=== PATIENT | male | born 1960 | race Caucasian/White ===

== ENCOUNTER 2023-09-01 13:27 | Outpatient (CLI) | payer BC, SELFPAY ==
--- NOTE | 2023-09-01 13:45 | MR_ITS ---
[address] [address] Phone:?[phone] Fax:?[phone] Referring Physician Information: Dean Hardy M.D. [address] [place] [address] Phone:?[phone] Fax:?[phone] Patient:Morro Encinas D.O.B:?1960 Sex:?Male Phone:?[phone] [facility] MRN:?[id number] Exam Date:?09/01/2023 EXAM: MRI of the RIGHT SHOULDER, without contrast CLINICAL: Right shoulder pain. COMPARISONS: None available. TECHNICAL: Multiplanar multisequence MRI of the right shoulder was obtained. SEDATION: None. CONTRAST: None. FINDINGS: Rotator cuff: Supraspinatus/Infraspinatus: There is mild tendinosis with mild partial interstitial insertional tearing of the distal supraspinatus tendon. Infraspinatus tendon appears unremarkable. No significant fatty atrophy of the muscle bellies. Teres minor: No tendinosis, tear or atrophy. Subscapularis: No tendinosis, tear or atrophy. Bursae: Subacromial-subdeltoid: No significant bursal fluid. Subcoracoid: No significant bursal fluid. Coracoacromial arch: Acromion morphology: Type II. No os acromiale. Acromiohumeral space: Within normal limits. Coracohumeral space: Within normal limits. Biceps tendon, long head: Mild partial interstitial tearing of the intra- articular tendon as seen on sagittal series 8 image 13-16. Mild partial interstitial tearing also involves the imaged proximal extra-articular tendon with mild fluid about the imaged proximal extra-articular tendon. No significant tendon displacement. Glenohumeral joint: Physiologic volume of joint fluid. Articular cartilage: There is high-grade/full-thickness chondral loss involving the posterior extending into the central glenoid, also seen to involve the superior and superomedial humeral head. Capsule: No convincing evidence of capsular thickening or injury. Labrum: There is tearing of the superior labrum posterior to the biceps anchor as seen on coronal series 4 images 15-16. There is tearing of the inferior labrum with very small adjacent paralabral cyst formation. Bones: No suspicious marrow signal alteration, fracture or dislocation. There is mild degenerative peripheral marginal spurring involving the glenohumeral joint with mild subchondral reactive marrow edema involving the glenoid. Acromioclavicular joint: Mild changes of arthrosis. No AC joint injury/widening. IMPRESSION: 1. Mild tendinosis with mild partial interstitial tearing of the distal supraspinatus tendon. 2. Mild partial interstitial tearing of the long head biceps tendon. 3. Tearing of the superior as well as the inferior labrum. 4. High-grade/full-thickness chondral loss involving the glenohumeral joint as above. Mild osseous changes of glenohumeral arthrosis. 5. Mild AC joint arthrosis. JCZ Electronically signed on 09/02/2023 7:35:00 AM by Lopez Escobar D.O.
== END 2023-09-01 13:28 | disposition home or self-care (01) ==
LOC: MRI 13:28
PROVIDERS: PCP Family Medicine; Visit Provider Orthopaedic Surgery
DX: M25.511 Pain in right shoulder (principal); M75.101 Unspecified rotator cuff tear or rupture of right shoulder, not specified as traumatic; S43.431A Superior glenoid labrum lesion of right shoulder, initial encounter; M19.011 Primary osteoarthritis, right shoulder
CPT/HCPCS: 73221

== ENCOUNTER 2023-09-07 09:55 | Outpatient (RCR) | payer BC, SELFPAY | END 2024-01-05 23:59 | disposition home or self-care (01) | PROVIDERS: PCP Family Medicine; Visit Provider Orthopaedic Surgery | DX: M19.011 Primary osteoarthritis, right shoulder (principal); M25.511 Pain in right shoulder; R29.898 Other symptoms and signs involving the musculoskeletal system; Z51.89 Encounter for other specified aftercare | CPT/HCPCS: 97110; 97140; 97162 ==

== ENCOUNTER 2024-05-18 07:50 | Outpatient (CLI) | payer BC, SELFPAY ==
--- NOTE | 2024-05-18 08:15 | MR_ITS ---
[address] [address] Phone:?[phone] Fax:?[phone] Referring Physician Information: Dean Hardy M.D. [address] [place] [address] Phone:?[phone] Fax:?[phone] Patient:Morro Encinas D.O.B:?1960 Sex:?Male Phone:?[phone] [facility] MRN:?[id number] Exam Date:?05/18/2024 EXAM: MRI of the LEFT ANKLE CLINICAL HISTORY: Ongoing left ankle pain. Peroneal tendon tear. COMPARISONS: Plain radiographs 08/27/2023. TECHNICAL: MRI sequences of the left ankle: Axials: PD, T2 Coronals: PD, T2 Sagittals: PD, T2, STIR Sedation: None Contrast: None FINDINGS: Joints and osseous structures: There is focal edema-like signal within the calcaneus within and adjacent to the calcaneal peroneal tubercle. No fracture, subluxation, dislocation, tarsal coalition, or talar dome osteochondral lesion is seen. Ligaments: Syndesmotic: The anterior inferior tibiofibular, posterior inferior tibiofibular, and inferior transverse ligaments are intact. Anterior talofibular: Irregularity and thickening. Calcaneofibular: Intact. Posterior talofibular: Intact. Deltoid: Irregularity and ill-definition of both the deep and superficial layers of the deltoid ligament. Spring: Unremarkable. Sinus tarsi: Intact lateral cervical and medial interosseous ligaments. Bifurcate: Unremarkable lateral calcaneonavicular and medial calcaneocuboid ligaments. Calcaneocuboid: Unremarkable medial, dorsolateral and plantar ligaments. Lisfranc ligament complex: Not completely covered in the [id number] of this study. Flexor tendons: Posterior tibial: A small amount of fluid surrounding the posterior tibialis tendon may be within normal physiologic limits versus slight tenosynovitis. Flexor digitorum longus: Intact. Flexor hallucis longus: Intact. Peroneal tendons: There is mild peroneal tenosynovitis. There is high-grade/near complete tearing of the peroneus brevis tendon from just above the distal fibular tip extending just distal to the level of the calcaneal peroneal tubercle. There is fraying and mild tendinopathy of the peroneus longus tendon between the levels of the distal fibular tip and calcaneocuboid joint. No lateral subluxation. Extensor tendons: Tibialis anterior: Intact. Extensor hallucis longus: Intact. Extensor digitorum longus: Intact. Achilles tendon: Intact. Plantar aponeurosis: Unremarkable. Sinus Tarsi:?The sinus tarsi fat is intact. Tarsal tunnel: Unremarkable. IMPRESSION: 1. Irregularity and thickening of the anterior talofibular ligament are findings consistent with sequelae of chronic sprain injury. 2. Mild peroneal tenosynovitis. High-grade/near complete tearing of the peroneus brevis tendon from just above the distal fibular tip extending just distal to the level of the calcaneal peroneal tubercle. Fraying and mild tendinopathy of the peroneus longus tendon between the levels of the distal fibular tip and calcaneocuboid joint. Focal edema-like signal within the calcaneus within and adjacent to the calcaneal peroneal tubercle likely reflects reactive bone marrow edema secondary to peroneal tendon pathology. 3. Irregularity and ill-definition of both the deep and superficial layers of the deltoid ligament are findings consistent with sequelae of chronic sprain injuries. 4. A small amount of fluid surrounding the posterior tibialis tendon may be within normal physiologic limits versus slight tenosynovitis. 5. No acute ligamentous injury or talar dome osteochondral lesion of the left ankle. RCB Electronically signed on 05/18/2024 10:54:00 AM by Earnest Hardwick M.D.
== END 2024-05-18 07:51 | disposition home or self-care (01) ==
LOC: MRI 07:50
PROVIDERS: PCP Family Medicine; Visit Provider Orthopaedic Surgery
DX: M25.572 Pain in left ankle and joints of left foot (principal); S93.492S Sprain of other ligament of left ankle, sequela; M65.872 Other synovitis and tenosynovitis, left ankle and foot; S96.812A Strain of other specified muscles and tendons at ankle and foot level, left foot, initial encounter; S86.319A Strain of muscle(s) and tendon(s) of peroneal muscle group at lower leg level, unspecified leg, initial encounter
CPT/HCPCS: 73721

== ENCOUNTER 2024-06-15 06:23 | Day surgery (SDC) | payer BC, SELFPAY ==
[2024-06-15] VITALS (13 sets, daily range): BP systolic 141–165; BP diastolic 82–97; PULSE 48–66; RESP 13–20; TEMP 36.1–36.7; O2SAT 94–98; BMI 28.0
[2024-06-15] MEDS: SODIUM CHLORIDE 0.9 % (FLUSH) 10 ML SYRINGE IVF (06:54)
[2024-06-15] MEDS: CEFAZOLIN 2 GM INJ IVP (07:43)
[2024-06-15] MEDS: LACTATED RINGERS 500 ML 500 ML 125 ML IV (08:00)
[2024-06-15] MEDS: 0.9 % SODIUM CHLORIDE 500 ML 500 ML 30 ML IV (08:00)
[2024-06-15] MEDS: LACTATED RINGERS 1000 ML 1,000 ML 100 ML IV (08:45)
--- NOTE | 2024-06-15 08:49 | W.ANESCHARGE ---
Anesthesia Charges Start Date/Time Anesthesia Start Date: 06/15/24 Anesthesia Start Time: 07:31 Stop Date/Time Anesthesia Stop Date: 06/15/24 Anesthesia Stop Time: 09:44
--- NOTE | 2024-06-15 09:27 | PM.ORPRC ---
Procedure Note Date of procedure: 06/15/24 Procedure: PREOPERATIVE DIAGNOSIS: Left lower extremity peroneus brevis tear POSTOPERATIVE DIAGNOSIS: Left lower extremity peroneus brevis tear NAME OF OPERATION: Peroneus brevis debridement with primary repair SURGEON: Dean Hardy MD PERSONAL INSURANCE ADVISOR: MARLENE Ross ANESTHESIA: Spinal ESTIMATED BLOOD LOSS: 0 mL COMPLICATIONS: None SPECIMENS: None DRAINS: None PREOPERATIVE ANTIBIOTICS: Ancef 2 gram INDICATIONS: The patient is a 64-year-old male with lateral ankle pain. MRI scan is consistent with a near full-thickness tear of the peroneus brevis. Operative intervention was recommended. The risks, benefits and expected outcomes were discussed in detail. These included but were not limited to: Infection, bleeding, injury to blood vessel or nerve, venous thromboembolism. All questions were answered to their satisfaction. Use of an visitor service assistant was necessary throughout the case for patient positioning and safety, soft tissue retraction and closure. PROCEDURE: Spinal anesthesia was administered. The patient was placed supine on the operating room table. The left lower extremity was prepped and draped in the usual sterile fashion. The limb was exsanguinated with the Perez bandage. The pneumatic tourniquet was inflated to 300 mmHg. A longitudinal incision was made laterally, over the peroneal tendons, just posterior to the lateral malleolus. Subcutaneous dissection was taken with tenotomy scissors to the peroneal tendon sheath. The visitor service assistant was used to retract the soft tissues and protect them. The sheath was opened longitudinally. The peroneal tendons were encountered. The longus was thickened, but not degenerative. The brevis was markedly degenerative for a 60 mm length of tendon from proximal to the posterior aspect of the lateral malleolus to distal to the tip of the lateral malleolus. It was debrided longitudinally. It was freed up from its fibro-osseous tunnel. Given how much of the tendon was involved it was not transversely debrided/excised for fear that an end-to-end repair would not be possible without marked eversion of the foot. We then ran a 2-0 FiberWire suture x2. One from distal to proximal, 1 from proximal to distal. This provides a reasonable repair of the tendon. The wounds were irrigated with normal saline. The peroneal tendon sheath was repaired with a 2-0 Vicryl in an interrupted [id number] fashion. The tendons are stable with passive range of motion of the ankle and subtalar joints. The visitor service assistant closed the soft tissue with a 2-0 Vicryl deep and a 3-0 Monocryl in a subcuticular fashion. Glue was used to seal the skin. The visitor service assistant placed a dry dressing and short leg Kunal Corrales splint with the ankle in a neutral position. The tourniquet was released. Sponge and needle counts were correct x 2. The patient tolerated the procedure well. There were no apparent complications. They were carefully transferred to the hospital bed and taken to the postanesthesia care unit in satisfactory condition. PLAN: The patient will be discharged to home. They may toe-touch weightbear on the lower extremity. They will continue to work on ice and elevation. They will follow up in the office in 1-2 weeks for a wound check. If there are no wound issues we will place them in a CAM walker and allow them to weightbear as tolerates. Additionally, we will likely begin some early physical therapy.
--- NOTE | 2024-06-15 09:49 | W.ANESCHARGE ---
Anesthesia Charges Start Date/Time Anesthesia Start Date: 06/15/24 Anesthesia Start Time: 07:31 Stop Date/Time Anesthesia Stop Date: 06/15/24 Anesthesia Stop Time: 09:44
[2024-06-15] MEDS: fentaNYL 100 MCG/2 ML inj 50 MCG IVP (09:53)
--- NOTE | 2024-06-15 10:45 | W.PM.NB ---
Nerve Block Nerve Block Time Seen by Provider: 09:45 Date Seen: 06/15/24 Type of block requested by surgeon for post-operative analgesia: popliteal Side: left Time out performed: Yes Verification of patient name: Yes Verification of date of : Yes Site marking: site marked Name of person performing procedure: Warren Continuous monitoring Was continuous monitoring of O2 sat, B/P, campus monitor, recorded every 15 minutes?: Yes Procedure Checklist: sterile prep, needles and gloves Ultrasound guided. Images saved: Yes Medications given in 5ml increments after negative aspiration: Marcaine %: 0.5 mL: 20 Needle gauge: 22 Patient tolerated procedure well: Yes Additional comments: Needle noted adjacent to nerve Block Charges Block Charge (with Pro Fee): Sciatic Nerve Use of Ultrasound Machine for Block: Yes- US Guidance/pain block
== END 2024-06-15 11:35 | disposition home or self-care (01) ==
LOC: OR 06:24
PROVIDERS: PCP Family Medicine; Visit Provider Orthopaedic Surgery
PROC: (CPT 27650; principal; 2024-06-15 07:45)
DX: S86.312A Strain of muscle(s) and tendon(s) of peroneal muscle group at lower leg level, left leg, initial encounter (principal); G89.18 Other acute postprocedural pain
CPT/HCPCS: 28200; 01470; 64445; 76942; J0665; J0690; J1100; J2250; J2405; J2704; J3010; J7030; J7120

== ENCOUNTER 2024-08-28 09:00 | Outpatient (RCR) | payer BC, SELFPAY | END 2024-12-26 23:59 | disposition home or self-care (01) | PROVIDERS: PCP Family Medicine; Visit Provider Orthopaedic Surgery | DX: Z48.89 Encounter for other specified surgical aftercare (principal); Z51.89 Encounter for other specified aftercare | CPT/HCPCS: 97110; 97112; 97140; 97161 ==

== ENCOUNTER 2025-02-09 19:32 | Emergency (ER) | payer BC, SELFPAY ==
--- OUTSIDE RECORDS SUMMARY | 2025-02-09 19:34 | XMS_ITS | Clinical Summary ---
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
--- OUTSIDE RECORDS SUMMARY | 2025-02-09 19:34 | XMS_ITS | Clinical Summary ---
Author Organization [facility] Address [address] [place] [id number] Care Team Providers Care Orthopaedic Technologist Name Role Phone Levi Curry Jorge Unavailable [phone] Amado West MD Primary Care Provider Allergies Active Allergy Reactions Criticality Noted Date Comments Phenylephrine Hypertension 08/30/2024 Pseudoephedrine Hypertension 08/30/2024 Medications omeprazole 20 mg Delayed-Release capsuleIndicati ons:Gastritis, presence of bleeding unspecified, unspecified chronicity, unspecified gastritis type Take 1 Capsule (20 mg) by mouth once daily before a meal. Take 30 minutes prior to a meal 90 Capsule 01/27/20 25 Active lisinopril-hydr ochlorothiazide 20-12.5 mg tablet (PRINZIDE)Indic ations:HTN (hypertension) TAKE TWO TABLETS BY MOUTH EVERY DAY 180 Tablet 1 01/30/20 25 Active lisinopril-hydr ochlorothiazide , 20-25 mg, (PRINZIDE, ZESTORETIC) 20-25 mg per tablet Take 1 Tablet by mouth once daily. 07/13/20 22 025 Discontinued(*M ed complete/Regime n complete/Level of care change) lisinopril-hydr ochlorothiazide 20-12.5 mg tablet (PRINZIDE)Indic ations:HTN (hypertension) TAKE TWO TABLETS BY MOUTH EVERY DAY 180 Tablet 11/07/19 25 025 Discontinued Active Problems Problem Noted Date Diagnosed Date Hemorrhoids, external 04/15/2020 Essential hypertension 09/26/2014 Encounters Date Type Department Care Team Description 01/27/2025 Refill [facility] in [place] [address] [place] [phone] Amado West MD Refill Request (Lisinopril-hydrochlo rothiazide (20-12.5 Mg)) 01/26/2025 9:00 AM CDT Office Visit [facility] in [place] [address] [place] [phone] Amado West MD Physical 01/26/2025 Travel from Last 3 Months Immunizations Immunization Administration Dates Next Due COVID-19 VACCINE SPIKEVAX (M ODERNA 50MCG/0.5ML) 12YO+ PFS 08/27/2023 COVID-19 vaccine (Moderna 50 mcg/0.5mL) 12YO+ BIVALENT PF, MDV 07/27/2022 DTaP 09/20/2007 Hepatitis A (Adult) 10/31/2003 Influenza Virus, Unspecified 08/05/2015,09/01/19 13 Influenza, IIV3 (Age >=3 years) 08/05/2015,09/01 Influenza, IIV4 08/27/2023, 2,07/01/2021,08/07 Pneumococcal Conj 20-valent (Prevnar 20) 01/26/2025 RSV, Recombinant ADJ Reconst ituted (Arexvy 120MCG/0.5mL) 08/27/2023 Td (Age >=7 Years) 10/31/2003 Tdap 02/11/2017,09/20/2007 Zoster (Shingrix-RZV, recombinant) 11/26/2021, Family History Medical History Relation Name Comments Cancer-prostate Father Heart Disease Father stents Other Father hyperlipidemia Cancer-colon No Family History Diabetes No Family History Heart attack No Family History no prematu re cad Relation Name Status Comments Brother 1 Alive Brother 2 Alive Daughter Alive Father Alive Prostate cancer Mother Alive Sister 1 Alive Sister 2 Alive Son 1 Alive Son 2 Alive Social History Tobacco Use Types Packs/Day Years Used Date Smoking Tobacco: Never Passive Smoke Exposure: Never Smokeless Tobacco: Former Chew Quit: 06/17/2007 Tobacco Cessation:Counseling Given: Not Answered Alcohol Use Standard Drinks/Week Comments Yes 10 (1 standard drink = 0.6 oz pu re alcohol) 1 - 2 / day PHQ-2 Answer Date Recorded PHQ-2 TOTAL SCORE 0 01/26/2025 Social Connections Answer Date Recorded Do you often feel lonely or isolated from those around you? 0 08/30/2024 Financial Resource Strain Answer Date R ecorded Difficulty of Paying Living Expenses 3 08/30/2024 Difficulty of Paying Living Expenses Not on file 08/30/2024 Food Insecurity Answer Date Recorded Do you worry your food will run out before you are able to buy more? 1 08/30/2024 Transportation Needs Answer Date Record ed Does lack of transportation keep you from medica l appointments? 1 08/30/2024 Does lack of transportation keep you from work, meetings or getting things that you need? 1 08/30/2024 Housing Stability Answer Date Recorded What is your housing situation today? 1 08/30/2024 Interpersonal Safety Answer Date Record ed Are you being hit, kicked, p ushed or yelled at (see row info)? No 09/06/2023 Interpersonal Safety Abuse 12 - 18 Not on file 09/06/2023 Interpersonal Safety Ambulatory Vulnerability No t on file 09/06/2023 Utilities Answer Date Recorded Do you have trouble paying f or utilities (for example, heat, electricity, water, phone)? 1 08/30/2024 Sex and Gender Information Value Date Recorded Sex Assigned at Not on file Legal Sex Male 6:44 AM TALENT SPECIALIST Gender Identity Not on file Sexual Orientation Not on file Occupation Industry Job Start Date Job End Date [employer] Not on file Not on file Not on file Obstetrics History Last Filed Vital Signs Vital Sign Reading Time Taken Comments Blood Pressure 142/76 01/26/2025 8:12 AM CDT Pulse 80 01/26/2025 8:12 AM CDT Temperature 36.4 C (97.6 F) 08/30/2024 9:20 AM TALENT SPECIALIST Respiratory Rate 18 08/30/2024 9:20 AM TALENT SPECIALIST Oxygen Saturation 98% 08/30/2024 9:20 AM TALENT SPECIALIST Inhaled Oxygen Concentration - - Weight 98.1 kg (216 lb 4.8 oz) 01/26/2025 8:12 A M CDT Height 189.2 cm (6' 2.5) 01/26/2025 8:12 AM CDT Body Mass Index 27.4 01/26/2025 8:12 AM CDT Plan of Treatment Health Maintenance Due Date Last Done Comments HIV for age 15-65 1975 COVID-19 vaccine series (2023- season) 2024 08/27/2023, 07/27/2022, 07/01/2021, Additional history exists Influenza Vaccine (Season Ended) 2025 08/27/2023, 07/03/2022, 07/01/2021, Additional history exists BMI (ht and wt on same day) for age 18+ 01/26/2026 01/26/2025, 06/05/2024, 09/10/2023, Additional history exists Depression screening for age 12+ 01/26/2026 01/26/2025, 08/27/2023, 07/27/2022, Additional history exists Tetanus booster 02/11/2027 02/11/2017, 08/24, 10/31/2003 Lipids for age 45-75 01/26/2030 01/26/2025, 08/27/2023, 07/24/2022, Additional history exists Colonoscopy through age 75 07/16/203107/16, 06/04/2011, 06/04/2011 Tdap Completed 02/11/2017, 09/20/2007 Hepatitis C screening for age 18-79 Completed 08/07/2020 Zoster (shingles) series for age 50+ Completed 11/26/2021, 08/07/2020 RSV vaccine for adults or Completed 08/27/2023 Pneumococcal series for age 50+ Completed 01/26/2025 Hepatitis B series for 19+ Aged Out N o longer eligible based on patient's age to complete this topic Procedures Procedure Name Priority Date/Time Associated Diagnosis Comments CBC W PLT NO DIFF Routine 01/26/2025 9:2 2 AM CDT Gastritis, presence of bleeding unspecified, unspecified chronicity, unspecified gastritis type COMP METABOLIC PANEL Routine 01/26/2025 9:22 AM CDT Gastritis, presence of bleeding unspecified, unspecified chronicity, unspecified gastritis type LIPASE Routine 01/26/2025 9:22 AM CDT Gastritis, presence of bleeding unspecified, unspecified chronicity, unspecified gastritis type LIPID PANEL W REFLEX MEASURED LDL Routine 01/26/2025 9:22 AM CDT Encounter for screening for lipoid disorders PSA TOTAL Routine 01/26/2025 9:22 AM CDT Routine medical exam COLONOSCOPY 07/16/2021 1:47 PM TALENT SPECIALIST ANTI HCV Routine 08/07/2020 4:10 PM TALENT SPECIALIST Need for hepatitis C screening test from Last 3 Months or Most Recently Relevant to Health Maintenance Results * (ABNORMAL) LIPID PANEL W REFLEX MEASURED LDL ([id number]) (01/26/2025 9:22 AM CDT) CHOLESTEROL,TOTAL 219(H) 100 - 199 mg/dL 01/26/2025 5:28 PM CDT [facility] Comment: Cholesterol, Total Reference Ranges Desirable <200 mg/dL Borderline 200-239 mg/dL High >=240 mg/dL TRIGLYCERIDES 60 <150 mg/dL 01/26/2025 5:28 PM CDT [facility] HDL CHOLESTEROL 100 >40 mg/dL 5:28 PM CDT [facility] NON-HDL CHOLESTEROL 119 <145 mg/dl 01/26/2025 5:28 PM CDT [facility] CHOL/HDL RATIO 2.19 <4.50 01/26/2025 5:28 PM CDT [facility] LDL CHOLESTEROL 107 <=130 mg/dL 01/26/2025 5:28 PM CDT [facility] VLDL CHOLESTEROL 12 <=30 mg/dL 01/26/2025 5:28 PM CDT [facility] PROVIDER ORDERED STATUS FASTING 01/26/2025 5:28 PM CDT [facility] Blood BLOOD SPECIMEN / Unknown Venipuncture / Unknown 01/26/2025 9:22 AM CDT 01/26/2025 9:22 AM CDT us Amado Severino West MD CHEMISTRY Final Result [facility] [address] [place] [address], * CBC W PLT NO DIFF (01/26/2025 9:22 AM CDT) WHITE BLOOD COUNT 5.8 4.5 - 11.0 thou/cu mm 01/26/2025 5:23 PM CDT [facility] RED BLOOD COUNT 5.19 4.30 - 5.90 mil/cu mm 01/26/2025 5:23 PM CDT [facility] HEMOGLOBIN 15.6 13.5 - 17.5 g/dL 01/26/2025 5:23 PM CDT [facility] HEMATOCRIT 46.9 37.0 - 53.0 % 01/26/2025 5:23 PM CDT [facility] MCV 90 80 - 100 fL 01/26/2025 5:23 PM CDT [facility] MCH 30.1 26.0 - 34.0 pg 01/26/2025 5:23 PM CDT [facility] MCHC 33.3 32.0 - 36.0 g/dL 01/26/2025 5:23 PM CDT [facility] RDW 13.1 11.5 - 15.5 % 01/26/2025 5:23 PM CDT [facility] PLATELET COUNT 211 140 - 440 thou/cu mm 01/26/2025 5:23 PM CDT [facility] MPV 10.6 6.5 - 11.0 fL 01/26/2025 5:23 PM CDT [facility] NRBC 0.0 % 01/26/2025 5:23 PM CDT [facility] ABS NRBC 0.0 thou /cu mm 01/26/2025 5:23 PM CDT [facility] Blood BLOOD SPECIMEN / Unknown Venipuncture / Unknown 01/26/2025 9:22 AM CDT 01/26/2025 9:22 AM CDT Amado West MD HEMATOLOGY Final Result Performing Organization Address City/[facility]/ZIP Co de Phone Number [facility] [address] [address], [place] * PSA TOTAL (DIAGNOSTIC) [[id number]] (01/26/2025 9:22 AM CDT) PSA TOTAL 1.45 <4.00 ng/mL 01/26/2025 5:49 PM CDT [facility] Blood BLOOD SPECIMEN / Unknown Venipuncture / Unknown 01/26/2025 9:22 AM CDT 01/26/2025 9:22 AM CDT Narrative [facility] - 01/26/2025 5:49 PM CDT The test method changed on 02/16/2023. If this test has been used for serial monitoring, rebaselining is recommended. Rebaselining consists of 2 measurements, collected 3-6 weeks apart. The [employer] Elecsys total PSA assay is an electrochemiluminescence immunoassay ECLIA performed on the [employer] Doretha e immunoassay analyzers. Values obtained with different assay methods may be different and cannot be used interchangeably. us Amado West MD CHEMISTRY Final Result Performing Organization Address [facility] Co de Phone Number [facility] [address] [address], [place] * LIPASE (01/26/2025 9:22 AM CDT) LIPASE 18.0 13.0 - 60.0 IU/L 01/26/2025 5:28 PM CDT [facility] Blood BLOOD SPECIMEN / Unknown Venipuncture / Unknown 01/26/2025 9:22 AM CDT 01/26/2025 9:22 AM CDT Amado West MD CHEMISTRY Final Result Performing Organization Address City/[facility] Co de Phone Number [facility] [address] [place] [address], * (ABNORMAL) COMP METABOLIC PANEL (01/26/2025 9:22 AM CDT) SODIUM 137 136 - 145 mmol/L 01/26/2025 5:28 PM CDT [facility] POTASSIUM 4.2 3.5 - 5.1 mmol/L 01/26/2025 5:28 PM CDT [facility] CHLORIDE 101 98 - 107 mmol/L 01/26/2025 5:28 PM CDT [facility] CO2,TOTAL 25 22 - 29 mmol/L 01/26/2025 5:28 PM CDT [facility] ANION GAP 11 5 - 18 01/26/2025 5:28 PM CDT [facility] GLUCOSE 107(H) 70 - 99 mg/dL 01/26/2025 5:28 PM CDT [facility] CALCIUM 9.5 8.8 - 10.4 mg/dL 01/26/2025 5:28 PM CDT [facility] Comment: Reference ranges for this test were updated on 06/27/2024 to reflect our healthy population more accurately. Reference range changes are not retroactively applied to results, but previous results using the same methodology can be interpreted in the context of the new reference range. BUN 17 8 - 23 mg/dL 01/26/2025 5:28 PM CDT [facility] CREATININE 0.93 0.70 - 1.20 mg/dL 01/26/2025 5:28 PM T [facility] BUN/CREAT RATIO 18 10 - 20 5:28 PM T [facility] eGFR >90 >90 mL/min/1. 73m2 01/26/2025 5:28 PM T [facility] Comment:As of 2021, eG FR is calculated by the CKD-EPI creatinine equation without race adjustment. eGFR can be influenced by muscle mass, exercise, and diet. The reported eGFR is an estimation only and is only applicable if the renal function is stable. ALBUMIN 4.5 4.0 - 4.9 g/dL 01/26/2025 5:28 PM CDT [facility] PROTEIN,TOTAL 7.3 6.0 - 8.0 g/dL 01/26/2025 5:28 PM CDT [facility] BILIRUBIN,TOTAL 0.4 0.0 - 1.2 mg/dL 01/26/2025 5:28 PM CDT [facility] ALK PHOSPHATASE 71 40 - 129 IU/L 01/26/2025 5:28 PM CDT [facility] ALT (SGPT) 31 10 - 50 IU/L 01/26/2025 5:28 PM CDT [facility] AST (SGOT) 29 10 - 50 IU/L 01/26/2025 5:28 PM CDT [facility] Blood BLOOD SPECIMEN / Unknown Venipuncture / Unknown 01/26/2025 9:22 AM CDT 01/26/2025 9:22 AM CDT [facility] Severino West MD CHEMISTRY Final Result [facility] [address] [place] [address], [place] * COLONOSCOPY (07/16/2021 1:47 PM TALENT SPECIALIST) 07/16/2021 1:47 PM TALENT SPECIALIST Narrative Transcriptions Gavin Monge MD - 07/16/2021 2:29 PM CST Patient Name: Adriano Encinas Procedure Date: 07/16/2021 Gender: Male Date of : 1960 Admit Type: Ambulatory Procedure: Colonoscopy Proceduralist: Gavin Monge MD Indications/Pre-Op Diagnosis: Screening for colorectal malignantneoplasm Medications: Propofol per Anesthesia Procedure Description: The procedure, indications, potential complications, (bleeding, perforation, infection, adverse medication reaction, missed lesionsor polyps) and alternatives available were explained to the patient, who appeared to understand and indicated this. Opportunity for questionswas provided and informed consent obtained. The colonoscope was passed through the anus and advanced to thececum, identified by appendiceal orifice and ileocecal valve. Thecolonoscopy was performed without difficulty. The patient tolerated the procedure well. The quality of the bowel preparation was good. The ileocecal valve, appendiceal orifice, and rectum were photographed. Complications: No immediate complications. Estimated blood loss: Minimal. Estimated Blood Loss & Specimen: Estimated blood loss was minimal. Specimen collected: Yes and sent to Laboratory Findings: The perianal and digital rectal examinations were normal. A 4 mm polyp was found in the ascending colon. The polyp was semi-pedunculated. The polyp was removed with a cold snare. Resection and retrieval were complete. Verification of patient identificationfor the specimen was done by the physician, nurse and truck technician usingthe patient's name, date and medical record number. Estimated blood loss was minimal. A 3 mm polyp was found in the sigmoid colon. The polyp was semi-pedunculated. The polyp was removed with a cold snare. Resection and retrieval were complete. Verification of patient identificationfor the specimen was done by the physician, nurse and truck technician usingthe patient's name, date and medical record number. Estimated blood loss was minimal. The exam was otherwise without abnormality on direct and retroflexion views. Impressions/Post-Op Diagnosis: - One 4 mm polyp in the ascending colon, removed with a cold snare. Resected and retrieved. - One 3 mm polyp in the sigmoid colon, removed with a cold snare. Resected and retrieved. - The examination was otherwise normal on direct and retroflexionviews. Recommendation: - Discharge patient to home. - Resume previous diet. - Continue present medications. - Await pathology results. - Repeat colonoscopy in 5 years for surveillance. - Return to referring physician PRN. Moderate Sedation: Moderate (conscious) sedation was personally administered by an anesthesia professional. The following parameters were monitored:oxygen saturation, heart rate, blood pressure, and response to care. Total physician intraservice time was 40 minutes. Gavin Monge MD 07/16/2021 2:29:52 PM Note Initiated On: 07/16/2021 1:47 PM us Gavin Monge MD PROCEDURE ORD Final Result * ANTI HCV (08/07/2020 4:10 PM TALENT SPECIALIST) HEPATITIS C ANTIBODY Non-React nando Non-React nando 08/08/2020 3:26 PM TALENT SPECIALIST [facility] Comment:Antibodies to HCV no t detected; does not exclude the possibility of exposure to HCV. Blood BLOOD SPECIMEN / Unknown Venipuncture / Unknown 08/07/2020 4:10 PM TALENT SPECIALIST 08/07/2020 4:13 PM TALENT SPECIALIST us Jesu Alarcon MD SEND OUTS Final Result [facility] [address] [place] [address], [place] from Last 3 Months or Most Recently Relevant to Health Maintenance [place] [address] [address] [place] [address] Advance Directives * Full Code (Latest Code Status on File) Date Activated Date Inactivated Comments 07/16/2021 12:49 PM 07/16/2021 5:20 PM Question Answer Comments Code Status Discussion: Unable to Assess Preferences, Provider to review later Care Teams Orthopaedic Technologist Relationship Specialty Start Date End Date Amado West MD [facility] [place] [id number] PCP - General Family Practice 07/24/22 Levi Curry [address] [facility] Box Repairer 09/05/12
[2025-02-09 19:38] VITALS: BP 159/91; PULSE 86; RESP 16; O2SAT 98; BMI 27.0
--- NOTE | 2025-02-09 19:43 | ED.UPPEXIN ---
HPI - Extremity Injury (Upper) General Time Seen by Provider: 19:43 Date Seen: 02/09/25 Chief Complaint: Extremity Pain/Injury, Upper Stated Complaint: hurt right shoulder Time Seen by Provider: 02/09/25 19:35 Source: patient and RN notes reviewed Mode of arrival: ambulatory Limitations: no limitations History of Present Illness HPI narrative: This 64-year-old male is coming in with acute worsening of shoulder pain. He has arthritis in his shoulder, has torn right biceps, states he has had injections with Orthopedics before which have not helped. He notes he is had an MRI before. MRI from 2019 for reviewed and patient had mild tendinosis with mild partial interstitial tearing of the distal supraspinatus tendon. Mild partial interstitial tearing of the long head biceps tendon. Tearing of the superior as well as the inferior labrum. High grade full-thickness chondral loss involving the glenohumeral joint, mild osseous changes of glenohumeral arthrosis. Mild AC joint arthrosis. Patient was golfing today, was just kneeling down and putting his ball marker in place. He went to push off from the ground to get up using his arm, had sudden sharp shoulder pain, hurts in the shoulder. He tried Tylenol. He comes in with an ice pack on his shoulder. No numbness or tingling in this arm or hand. Related Data Home Medications ?Medication ?Instructions ?Recorded ?Confirmed lisinopril 20 2 tab PO DAILY 08/25/23 02/09/25 mg-hydrochlorothiazide 25 mg tablet Previous Rx's ?Medication ?Instructions ?Recorded celecoxib 200 mg capsule (Celebrex) 200 mg PO BID #60 caps 02/09/25 Allergies Allergy/AdvReac Type Severity Reaction Status Date / Time No Known Drug Allergies Allergy Verified 02/09/25 19:41 Review of Systems Narrative: As per HPI. PFS PFS Medical History Hypertension ?I10 - Essential (primary) hypertension (ICD-10) Osteoarthritis of left knee ?M17.12 - Unilateral primary osteoarthritis, left knee (ICD-10) Surgical History S/P tendon repair (06/15/24) ?Z98.890 - Other specified postprocedural states (ICD-10) H/O foot surgery (~1999) ?Z98.890 - Other specified postprocedural states (ICD-10) Hx of hemorrhoidectomy (05/27/20) ?Z98.890 - Other specified postprocedural states (ICD-10) Family History Grandmother Stroke Other High blood pressure Social History Smoking Status: Never smoker Do you use any of these nicotine containing products: None Second hand tobacco smoke exposure: No How often do you have a drink containing alcohol: monthly or less How many standard drinks containing alcohol do you have on a typical day: 1 or 2 AUDIT-C Alcohol total score: 1 Non-prescribed substance use: denies use Caffeine: No Exam Const: Vital Signs, click to edit/add: Vital Signs - 24 hr 02/09/25 19:38 Pulse Rate [Pulse Oximeter] 86 Respiratory Rate 16 Blood Pressure [Ri ght Upper Arm] 159/91 H Pulse Oximetry 98 Oxygen Delivery Me thod Room Air This 64-year-old male is alert, interactive, no apparent distress. He is nontender on palpation over his clavicle until the AC joint, maybe mildly tender but does not reproduce his pain. I can do forward flexion with his arm but any abduction, even getting to about 70 or 80? of abduction causes him pain. At rest there is no pain on palpation of the glenohumeral joint. He is tender in the bicipital groove. He still has preserved biceps strength testing. I really cannot do much for range of motion about his shoulder as it is quite painful. Documenting provider has reviewed patient's vital signs: yes Course Course ED Course: We will obtain x-ray images to further look at his shoulder. Discussed with him that clinically I do not think he is out of joint, reviewed that the x-ray images will certainly prove that. I do think he probably just has aggravation of underlying previous traumatic change in his joint. He could of aggravated 1 of the labral tear ears, could have potentially injured another portion of the rotator cuff. Reevaluation(s) Time of Reevaluation #1: 21:12 Reevaluation #1: Have reviewed patient's x-ray report with him. He is showing arthritis but there is no acute traumatic change. We did discuss that this imaging would not show further problems with labral tears, ligamentous injuries or tendon injuries. We discussed pain management. He really does not want narcotics, did discuss that we could do short course of something stronger. Will try NSAIDs and Tylenol, follow up with Orthopedics. He will be discharged to home at this time now. Vital Signs Vital signs: Initial Vital Signs Pulse Rate 86 02/09/25 19:38 Respiratory Rate 16 02/09/25 19:38 Blood Pressure 159/91 H 02/09/25 19:38 Blood Pressure Mean 113 H 02/09/25 19:38 Blood Pressure Position Sitting 02/09/25 19:38 Pulse Oximetry 98 02/09/25 19:38 Oxygen Delivery Method Room Air 02/09/25 19:38 Vital Signs Pulse Rate 86 02/09/25 19:38 Respiratory Rate 16 02/09/25 19:38 Blood Pressure 159/91 H 02/09/25 19:38 Pulse Oximetry 98 02/09/25 19:38 Oxygen Delivery Method Room Air 02/09/25 19:38 Pulse Rate 86 02/09/25 19:38 Respiratory Rate 16 02/09/25 19:38 Blood Pressure 159/91 H 02/09/25 19:38 Pulse Oximetry 98 02/09/25 19:38 Oxygen Delivery Method Room Air 02/09/25 19:38 MDM - Extremity Injury (Upper) Imaging Data XR right shoulder: Attestation: I have reviewed the pertinent imaging results. My impression: Did visualize patient shoulder x-ray, do see degenerative changes, wait radiology over read. Radiologist's impression: Patient: JUAN LOJA Facility:?[facility] Patient ID:?[id number] Site Patient ID:?[id number]. Site :?[id number] Study:?XRay-Shoulder Right 3V-02/09/2025 8:01:58 PM Ordering Physician:Gilma Ortiz Final Report: Indication: Pain. Technique: Right shoulder 3 views. Comparison: None. Findings: Bones: Alignment is normal. No acute fracture or suspicious bone lesion. Joint spaces: Moderate degenerative changes of the glenohumeral joint. Soft tissues: Unremarkable. Impression: No evidence of an acute bony abnormality. Dictated by Santo Benson MD @ 02/09/2025 8:28:48 PM (Electronic Signature) Discharge Plan Discharge Clinical Impression: Osteoarthritis of right shoulder Qualifiers: Osteoarthritis type: primary Qualified Code(s): M19.011 - Primary osteoarthritis, right shoulder Patient Disposition: Home, Self-Care Condition: Stable Instructions: Osteoarthritis (ED) Additional Instructions: Can use Toradol 10 mg, 1 tablet every 6 hours as needed for pain, 20 tablets provided from [employer]. Do not use other NSAIDs like ibuprofen, Aleve while on this. We will initiate Celebrex for you, can start when you are done using the Toradol. Can use Tylenol 1000 mg 3 times a day baseline for pain with any of these. You will need to follow up with Orthopedics, call Dr. Hardy to discuss further management of your shoulder. It is possible that the labral tears could have extended, there could be a new labral tear, there could be new tendon problems within the rotator cuff. These would be evaluated by MRI but I am not sure that it would be useful given your next step seems like shoulder replacement from what you have told me. Please talk to the orthopedist about this further. Activity Level: Activity as Tolerated Prescriptions: New celecoxib [Celebrex] 200 mg capsule 200 mg PO BID Qty: 60 0RF No Action lisinopril-hydrochlorothiazide 20-25 mg tablet 2 tab PO DAILY Follow Up/Referrals: Amado West MD [Primary Care Provider, Family Practice] Stand Alone Forms: Scheduling Employee Scheduling Software Info Instructions
--- NOTE | 2025-02-09 19:51 | CRLHL7_ITS ---
For Patients: As a result of the Cures Act, medical imaging exams and procedure reports are released immediately into your electronic medical record. You may view this report before your referring provider. If you have questions, please contact your health care provider. Indication: Pain. Technique: Right shoulder 3 views. Comparison: None. Findings: Bones: Alignment is normal. No acute fracture or suspicious bone lesion. Joint spaces: Moderate degenerative changes of the glenohumeral joint. Soft tissues: Unremarkable. Impression: No evidence of an acute bony abnormality. Dictated by Santo Benson MD @ 02/09/2025 8:28:48 PM (Electronically Signed)
[2025-02-09 21:36] VITALS: BP 144/78; PULSE 86; RESP 16; TEMP 36.7; O2SAT 98
== END 2025-02-09 21:37 | disposition home or self-care (01) ==
PROVIDERS: Emergency Provider Family Medicine; PCP Family Medicine
DX: M19.011 Primary osteoarthritis, right shoulder (principal)
CPT/HCPCS: 73030; 99283